=== PATIENT | female | born 1955 | race Caucasian/White ===

== ENCOUNTER 2019-03-30 21:16 | Inpatient (IN) | payer OTHER ==
[~2019-03-30] VITALS: Ht 149.9 cm; Wt 55.1 kg
[~2019-03-30 21:16] MED LIST: EFFEXOR XR150 MG PO; FEROSUL325 MG PO; FUROSEMIDE40 MG PO; SMZ TMP PO; XANAX XR0.5 MG PO
--- OUTSIDE RECORDS SUMMARY | 2019-03-30 21:19 | XMS REPORT ---
[facility] Address Unknown Phone Unavailable Care Team Providers Care Building Analyst/Supervisor Name Role Phone Unavailable Unavailable Problems This patient has no known problems. Allergies, Adverse Reactions, Alerts This patient has no known allergies or adverse reactions. Medications This patient has no known medications. Encounters Start Date/Time End Date/Time Encounter Type Admission Type Attending [facility] Care Department Encounter ID 2019-04-09 00:00:00 2019-04-09 00:00:00 Outpatient [facility] [id number] 2019-03-11 00:00:00 2019-03-11 00:00:00 Outpatient [facility] [id number] 2019-03-06 11:25:59 2019-03-06 11:25:59 Outpatient [facility] [id number] 2019-01-10 00:00:00 2019-01-10 00:00:00 Outpatient [facility] [id number] 2018-12-14 10:57:23 2018-12-14 10:57:23 Outpatient [facility] [id number] 2018-12-11 13:09:51 2018-12-11 13:09:51 Outpatient [facility] [id number] 2018-11-06 00:00:00 2018-11-06 00:00:00 Outpatient [facility] [id number] 2018-11-05 10:55:25 2018-11-05 10:55:25 Outpatient [facility] [id number] 2018-11-05 10:00:24 2018-11-05 10:00:24 Outpatient [facility] [id number] 2018-11-05 00:00:00 2018-11-05 00:00:00 Outpatient [facility] [id number] 2018-10-30 12:19:51 2018-10-30 12:19:51 Outpatient [facility] [id number] 2018-10-16 00:00:00 2018-10-16 00:00:00 Outpatient [facility] [id number] 2018-10-15 00:00:00 2018-10-15 00:00:00 Outpatient [facility] [id number] 2018-10-05 11:13:18 2018-10-05 11:13:18 Outpatient [facility] [id number] 2018-09-28 13:33:43 2018-09-28 13:33:43 Outpatient [facility] [id number] 2018-09-28 13:33:28 2018-09-28 13:33:28 Outpatient [facility] [id number] 2018-09-17 09:51:06 2018-09-17 09:51:06 Outpatient [facility] [id number] 2018-09-13 00:00:00 2018-09-13 00:00:00 Outpatient [facility] [id number] 2018-09-12 11:09:06 2018-09-12 11:09:06 Outpatient [facility] [id number] 2018-09-12 00:00:00 2018-09-12 00:00:00 Outpatient [facility] [id number] 2018-09-10 09:49:57 2018-09-10 09:49:57 Outpatient [facility] [id number] 2018-08-30 13:19:48 2018-08-30 13:19:48 Outpatient [facility] [id number] 2018-08-29 10:44:33 2018-08-29 10:44:33 Outpatient [facility] [id number] 2018-08-22 00:00:00 2018-08-22 00:00:00 Outpatient [facility] [id number] 2018-08-21 13:01:15 2018-08-21 13:01:15 Outpatient [facility] [id number] 2018-08-08 11:16:14 2018-08-08 11:16:14 Outpatient [facility] [id number] 2018-08-08 10:13:34 2018-08-08 10:13:34 Outpatient [facility] [id number] 2018-08-02 10:06:50 2018-08-02 10:06:50 Outpatient [facility] [id number] 2018-08-01 12:48:39 2018-08-01 12:48:39 Outpatient [facility] [id number] 2018-08-01 00:00:00 2018-08-01 00:00:00 Outpatient [facility] [id number] 2018-07-24 09:44:43 2018-07-24 09:44:43 Outpatient [facility] [id number] 2018-07-02 00:00:00 2018-07-02 00:00:00 Outpatient [facility] [id number] 2018-06-28 00:00:00 2018-06-28 00:00:00 Outpatient [facility] [id number] 2018-05-29 10:42:44 2018-05-29 10:42:44 Outpatient [facility] [id number] 2018-05-24 09:56:22 2018-05-24 09:56:22 Outpatient [facility] [id number] 2018-05-24 00:00:00 2018-05-24 00:00:00 Outpatient [facility] [id number] 2018-05-10 00:00:00 2018-05-10 00:00:00 Outpatient [facility] [id number] 2018-04-24 12:57:55 2018-04-24 12:57:55 Outpatient [facility] [id number] 2018-04-24 11:14:45 2018-04-24 11:14:45 Outpatient [facility] [id number] 2018-03-27 10:59:57 2018-03-27 10:59:57 Outpatient [facility] [id number] 2018-03-23 00:00:00 2018-03-23 00:00:00 Outpatient [facility] [id number] 2018-03-20 00:00:00 2018-03-20 00:00:00 Outpatient [facility] [id number] 2018-03-01 00:00:00 2018-03-01 00:00:00 Outpatient [facility] [id number] 2018-02-10 00:00:00 2018-02-10 00:00:00 Outpatient [facility] [id number] 2018-01-25 10:08:35 2018-01-25 10:08:35 Outpatient [facility] [id number] 2018-01-25 00:00:00 2018-01-25 00:00:00 Outpatient [facility] [id number] 2018-01-24 00:00:00 2018-01-24 00:00:00 Outpatient [facility] [id number] 2017-11-08 00:00:00 2017-11-08 00:00:00 Outpatient [facility] [id number] 2017-09-28 00:00:00 2017-09-28 00:00:00 Outpatient [facility] [id number] 2017-09-27 00:00:00 2017-09-27 00:00:00 Outpatient [facility] [id number] 2017-09-21 00:00:00 2017-09-21 00:00:00 Outpatient [facility] [id number] 2017-09-21 00:00:00 2017-09-21 00:00:00 Outpatient [facility] [id number] 2017-09-21 00:00:00 2017-09-21 00:00:00 Outpatient [facility] [id number] 2017-08-30 13:30:12 2017-08-30 13:30:12 Outpatient [facility] [id number] 2017-08-30 11:00:26 2017-08-30 11:00:26 Outpatient [facility] [id number] 2017-08-14 00:00:00 2017-08-14 00:00:00 Outpatient [facility] [id number] 2017-08-03 13:09:45 2017-08-03 13:09:45 Emergency [facility] [id number] 2017-08-03 12:59:59 2017-08-03 12:59:59 Inpatient [facility] [id number] 2017-08-03 11:04:59 2017-08-03 11:04:59 Outpatient [facility] [id number] 2017-07-14 00:00:00 2017-07-14 00:00:00 Outpatient [facility] [id number] 2017-06-28 00:00:00 2017-06-28 00:00:00 Outpatient [facility] [id number] 2017-06-23 00:00:00 2017-06-23 00:00:00 Outpatient [facility] [id number] 2017-06-14 00:00:00 2017-06-14 00:00:00 Outpatient [facility] [id number] 2017-06-07 16:19:50 2017-06-07 16:19:50 Outpatient [facility] [id number] 2017-05-17 00:00:00 2017-05-17 00:00:00 Outpatient [facility] [id number] 2017-05-12 00:00:00 2017-05-12 00:00:00 Outpatient [facility] [id number] 2017-04-18 10:59:06 2017-04-18 10:59:06 Outpatient [facility] [id number] 2017-03-15 00:00:00 2017-03-15 00:00:00 Outpatient [facility] [id number] 2017-03-14 00:00:00 2017-03-14 00:00:00 Outpatient [facility] [id number] 2017-03-01 10:15:42 2017-03-01 10:15:42 Outpatient [facility] [id number] 2017-02-23 09:11:28 2017-02-23 09:11:28 Outpatient [facility] [id number] 2017-02-22 00:00:00 2017-02-22 00:00:00 Outpatient [facility] [id number] 2017-02-21 14:25:05 2017-02-21 14:25:05 Outpatient [facility] [id number] 2017-02-21 13:53:03 2017-02-21 13:53:03 Outpatient [facility] [id number] 2017-02-08 08:59:13 2017-02-08 08:59:13 Outpatient [facility] [id number] 2017-02-07 14:58:18 2017-02-07 14:58:18 Outpatient [facility] [id number] 2017-02-07 13:29:57 2017-02-07 13:29:57 Outpatient [facility] [id number]
[2019-03-30 22:23] LABS: PROTHROMBIN TIME 13.7 seconds (11.9-14.5)
--- NOTE | 2019-03-30 22:28 | Diagnostic Imaging Report ---
EXAMINATION: CHEST SINGLE (PORTABLE) COMPARISON: Report of CT chest 02/13/2014. Images are not available for review. INDICATION: Shortness of breath ^SOB ^Y DISCUSSION: Frontal view of the chest obtained at 2207 hours. HEART AND MEDIASTINUM: The heart is enlarged. The aorta is tortuous. Pulmonary vascular structures prominent. LINES: None. LUNGS: The lungs are diffusely hyperinflated suggestive of small airways disease. No pneumonia or pulmonary edema. PLEURA: No pleural effusion or pneumothorax. BONES AND SOFT TISSUES: Dextroscoliosis of the thoracolumbar spine. No focal osseous lesions. Bilateral breast prostheses. Surgical clips in the right axilla. IMPRESSION: Cardiomegaly and pulmonary vascular congestion. Pulmonary hyperinflation suggestive of small airways disease. Signed by: Dr. Sarah Figueroa MD on 03/30/2019 10:25 PM
[2019-03-30 22:33] LABS: ALBUMIN 2.5 g/dL (3.5-5.0); ALBUMIN/GLOBULIN RATIO 0.9 (0.8-2.0); ANION GAP 17.5 mmol/L (8-16); CALCIUM 8.3 mg/dL (8.4-10.2); CREATININE, SERUM 1.37 mg/dL (0.57-1.11); POTASSIUM 4.5 mmol/L (3.5-5.1)
[2019-03-30] MEDS ORDERED: ONDANSETRON HCL INJ 2MG/ML 2ML 2 MG/ML VIAL IV STA (22:34)
[2019-03-30 22:36] LABS: BILIRUBIN,URINE NEGATIVE (NEGATIVE); CLARITY,URINE CLEAR (CLEAR); COLOR,URINE YELLOW (YELLOW); KETONES,URINE NEGATIVE (NEGATIVE); LEUKOCYTE ESTERASE ,URINE SMALL (NEGATIVE); NITRITE,URINE NEGATIVE (NEGATIVE); PROTEIN,URINE DIPSTICK NEGATIVE (NEGATIVE); URINE UROBILINOGEN 0.2 mg/dL (0.2 - 1)
[2019-03-30 22:40] LABS: CREATINE KINASE MB 25.5 ng/mL (0-5.0)
[2019-03-30 22:48] LABS: BACTERIA,URINE RARE /HPF; EPITHELIAL CELLS,URINE FEW /LPF; WBC,URINE (MAN) 21-50 /HPF (0-5)
[2019-03-30 22:57] LABS: LYMPHOCYTES # (AUTO) 2.6 (1.0-3.2); LYMPHOCYTES % 10.1 % (18.0-39.1); MEAN CORPUSCULAR HEMOGLOBIN 24.1 pg (28-32); MEAN CORPUSCULAR HGB CONC 31.4 g/dL (31-35); MEAN CORPUSCULAR VOLUME 76.8 fL (81-99); MONOCYTES # (AUTO) 1.4 (0.2-0.8); MONOCYTES % 5.4 % (4.4-11.3); NEUTROPHILS # (AUTO) 21.4 (2.1-6.9); NEUTROPHILS % 83.1 % (38.7-80.0); PLATELET COUNT 411 x10e3/uL (140-360); RED BLOOD COUNT 1.12 x10e6/uL (3.6-5.1); RED CELL DISTRIBUTION WIDTH 22.5 % (11.7-14.4)
[2019-03-30 23:00] LABS: HEMATOCRIT 8.6 % (34.2-44.1); HEMOGLOBIN 2.7 g/dL (12.0-16.0)
[2019-03-30] MEDS ORDERED: SODIUM CHLORIDE 0.9% 250ML 250 ML IV ONE (23:00)
[2019-03-30 23:05] LABS: LYMPHOCYTES % (MANUAL) 11 % (19-48)
[2019-03-30 23:06] LABS: BAND NEUTROPHILS % (MANUAL) 2 %; MONOCYTES % (MANUAL) 5 % (3.4-9.0); NEUTROPHILS % (MANUAL) 82 % (40-74); PLATELET ESTIMATE SLIGHTLY INCREASED
[2019-03-30 23:07] LABS: POLYCHROMASIA FEW
[2019-03-30 23:11] LABS: ELLIPTOCYTE, RBC SLIGHT
--- NOTE | 2019-03-30 23:11 | NUR ---
blood consent signed and placed on pt's chart. hct 2.7/hgb 8.6
[2019-03-30 23:12] LABS: LARGE PLATELETS MODERATE; PLATELET MORPHOLOGY COMMENT MODERATE LARGE
[2019-03-30 23:13] LABS: RBC MORPHOLOGY COMMENT ABNORMAL
--- NOTE | 2019-03-30 23:13 | NUR ---
JUILA INFORMED OF TYPE AND CROSS ORDERS
[2019-03-30] MEDS ORDERED: SODIUM CHLORIDE FLUSH 10 ML SYR INJ PRN (23:30)
--- NOTE | 2019-03-30 23:37 | NUR ---
REPORTED OFF TO DEMI CORDOBA FOR CONTINUITY OF CARE
[2019-03-31] VITALS (39 sets, daily range): BP systolic 110–146; BP diastolic 7–121
[2019-03-31] MEDS: CEFTRIAXONE SOD 1 GM/NS 50 ML 50 ML IV SCH ×2 (00:13→23:05)
[2019-03-31] MEDS: SODIUM CHLORIDE 0.9% 1000ML 1,000 ML IV SCH ×2 (00:13→14:04)
[2019-03-31] MEDS: FUROSEMIDE INJ 10 MG/ML 2 ML VIAL IV SCH ×4 (02:33→12:00)
[2019-03-31] MEDS ORDERED: SODIUM CHLORIDE 0.9% 250ML 250 ML ONE ×2 (03:58→08:59)
[2019-03-31] MEDS ORDERED: LORAZEPAM INJ 2 MG/ML VIAL IV PRN (07:15)
[2019-03-31] MEDS: PANTOPRAZOLE 40 MG 10ML VIAL IV SCH ×2 (08:10→16:57)
[2019-03-31] MEDS ORDERED: FLUCONAZOLE 100 MG/NS 50 ML 50 ML IV SCH (10:30)
[2019-03-31] MEDS ORDERED: NICOTINE 14 MG/EA PATCH TOP PRN (11:00)
--- NOTE | 2019-03-31 12:01 | History and Physical ---
REASON FOR ADMISSION: The patient is a 63-year-old female, who comes in with shortness of breath and dizziness. HISTORY OF PRESENT ILLNESS: Ms. Howard with history of breast cancer, was in usual state of health until about a week ago that she started to notice some shortness of breath and on exertion, the patient also noticed that she was feeling weaker with a history of iron deficiency anemia. The patient is on some iron tablets and also some vitamins, but these symptoms got exacerbated. The patient got dizzy and then severity increased. The patient came to the emergency room, was found to have a hemoglobin of 2 and subsequently, the patient is in ICU at this time being transfused 2 units of PRBCs. PAST MEDICAL HISTORY: History of COPD, history of breast cancer of the right, history of anxiety, history of depression, and history of prurigo nodularis. PAST SURGICAL HISTORY: 1. History of bilateral mastectomy, right one was done first. 2. History of partial hysterectomy. 3. History of bladder suspension. 4. History of tonsillectomy. MEDICATIONS: The patient takes at home: 1. Alprazolam 0.5 mg q.24 hours b.i.d. 2. Ferrous sulfate 325 mg daily. 3. Lasix 40 mg daily. 4. Venlafaxine 150 mg daily. 5. The patient also takes Bactrim b.i.d. which was started recently. ALLERGIES: ALLERGIC TO PENICILLIN. SOCIAL HISTORY: History of smoking. Smokes about a pack a day and also drinks occasionally. The patient apparently had last drink about a week ago. FAMILY HISTORY: Positive for hypertension and history of COPD in her family. REVIEW OF SYSTEMS: Negative for chest pain. Positive for some palpitations. No nausea, no vomiting. No diarrhea. Positive for shortness of breath on exertion. No constipation. No rectal bleeding. No hematochezia. No hematemesis. No bleeding diathesis noted. The patient does not have any bleeding from the rectum, not from the mouth and from the vaginal wall from the vagina. The patient has also has a skin condition where she picks on it. She has prurigo nodularis and has anxiety. PHYSICAL EXAMINATION: VITAL SIGNS: Temperature is afebrile, pulse of 104, respirations of 23, blood pressure is 121/66, pulse oximetry 100% on O2 of 4 L. HEENT: Normocephalic, atraumatic. Pupils are reactive to light and accommodation. The patient is sick appearing. CVS: S1 and S2, tachy. ABDOMEN: Nontender and nondistended. LUNGS: Decreased air entry in all somers. EXTREMITIES: No clubbing, no cyanosis, no edema. SKIN: With multiple excoriations and also areas of raised nodularity suggestive of prurigo. LABORATORY VALUES: Initial white count is 25,000, hemoglobin of 2.7, hematocrit of 8.6. The patient's neutrophil count is 83.1. Chemistry shows sodium of 131, potassium 4.5, BUN of 78, creatinine of 1.37, CK-MB was 25, creatine kinase was 390, total bilirubin was 0.1. Urine showed white count of 21-50, and stool occult was positive. IMAGING STUDIES: Chest x-ray was done, which showed cardiomegaly and pulmonary vascular congestion, pulmonary hyperinflation suggestive of small airway disease. ASSESSMENT: A 63-year-old female with: 1. Acute anemia, probably blood loss. 2. History of breast cancer. 3. Chronic obstructive pulmonary disease. 4. Signs and symptoms suggestive of heart failure. 5. Prurigo nodularis. 6. Anxiety. 7. Depression and anxiety. PLAN: Consult with Dr. Merrill has been done. A CT of the abdomen and pelvis will be done with contrast. If kidneys function has improved, additional diagnosis is acute kidney injury. Also consult with Dr. Claudio will be done. Echocardiogram will be ordered. Blood cultures, urine cultures, and peterson cultures ordered for leukocytosis. We will continue monitor the patient in the ICU. The patient will also receive a CT of the lung with contrast when appropriate and the patient is more stable. Further recommendation per clinical course. We will continue to monitor the patient and repeat labs and radiological studies as needed. MD GOYO BlakeJ/MODL /[id number]
--- NOTE | 2019-03-31 14:53 | Consultation ---
DATE OF CONSULTATION: Pulmonary Consultation Patient of Dr. Aquiles Antoine and Dr. Suárez at [facility]. HISTORY OF PRESENT ILLNESS: Charming, but unfortunate 63-year-old woman, admitted with weakness of 2 days duration and melena for 10 days, weak when going to the commode, but had no one to take her to the emergency room according to her report. Her son works night. She has a history of COPD. She has a history of breast cancer, treated in 2002 with mastectomy and chemotherapy, apparently by Dr. Eller and then Dr. Blackmon and an unknown oncologist. 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 Her kidney functions are good. She has a history of depression, on Effexor. She apparently takes iron at home. ALLERGIES: SHE IS ALLERGIC TO PENICILLIN. PAST MEDICAL HISTORY: According to old records, she has had anemia in the past. 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 PAST SURGICAL HISTORY: She has breast surgery, bladder surgery, and partial hysterectomy. SOCIAL HISTORY: She drank in the past alcohol. Continues to smoke a pack a day. FAMILY HISTORY: Positive for schizophrenia. PHYSICAL EXAMINATION: GENERAL: Well-developed white female, in no acute distress. LUNGS: Clear anteriorly. Bilateral breast prostheses. HEART: Regular rhythm. ABDOMEN: Nontender. EXTREMITIES: Nonedematous. IMPRESSION: Anemia was life-threatening at hemoglobin of 2.7. White count is elevated at 25,000, possibly related to stress or urinary infection. The patient was started on Diflucan because of a blood culture, but apparently this was ordered on the basis of an incorrect report and the patient's blood culture is still pending. We will discontinue the Diflucan. Consider iron replacement. Guaiac-positive stools noted. She will require further GI evaluation. We will request follow up CT of the chest, which has been abnormal in the past. She has also had a CT of the abdomen. GI evaluation has been ordered. Resume Effexor at a lower dose. The patient has been taking nonsteroidal agents [id number] bleeding. We will defer to GI cyber security consultant. Thank you for this kind referral. MD BENITO Tucker/GARTH /[id number]
[2019-03-31 15:28] LABS: BASOPHILS % 0.3 % (0.0-1.0); EOSINOPHILS % 0.1 % (0.0-6.0); HEMATOCRIT 26.2 % (34.2-44.1); HEMOGLOBIN 9.1 g/dL (12.0-16.0); LYMPHOCYTES # (AUTO) 1.1 (1.0-3.2); LYMPHOCYTES % 8.1 % (18.0-39.1); MEAN CORPUSCULAR HEMOGLOBIN 27.7 pg (28-32); MEAN CORPUSCULAR HGB CONC 34.7 g/dL (31-35); MEAN CORPUSCULAR VOLUME 79.6 fL (81-99); MONOCYTES # (AUTO) 1.1 (0.2-0.8); MONOCYTES % 7.5 % (4.4-11.3); NEUTROPHILS # (AUTO) 11.7 (2.1-6.9); NEUTROPHILS % 82.7 % (38.7-80.0); PLATELET COUNT 349 x10e3/uL (140-360); RED BLOOD COUNT 3.29 x10e6/uL (3.6-5.1); RED CELL DISTRIBUTION WIDTH 17.6 % (11.7-14.4)
[2019-03-31 15:55] LABS: CREATINE KINASE MB 10.1 ng/mL (0-5.0)
[2019-03-31 16:07] LABS: ANION GAP 15.7 mmol/L (8-16); CREATININE, SERUM 0.98 mg/dL (0.57-1.11)
[2019-03-31 16:11] LABS: POTASSIUM 2.7 mmol/L (3.5-5.1)
--- NOTE | 2019-03-31 16:33 | Consultation ---
DATE OF CONSULTATION: HISTORY OF PRESENT ILLNESS: A 63-year-old lady with history of anxiety, hypertension, history of breast cancer status post right mastectomy and chemotherapy, history of ethanol and smoking abuse in the past, came to the emergency room because she felt weak and tired at home. She was found to be severely anemic and admitted to the ICU. So far, she had 4 units of blood transfusion. She has been taking ibuprofen on a regular basis for quite some time for right shoulder ligament injury. She has noticed her stools are black for quite some time, but also she was taking iron, which she started on her own when she started feeling weak and tired. No heartburn. No acid reflux. No hematemesis. No nausea. No vomiting. She never had colon cancer screening in the past. PAST MEDICAL HISTORY: As above. PAST SURGICAL HISTORY: Partial hysterectomy, tonsillectomy, and mastectomy. ALLERGIES: PENICILLIN. CURRENT MEDICATIONS: 1. Ceftriaxone. 2. Ativan. 3. Pantoprazole. REVIEW OF SYSTEMS: Unremarkable. PHYSICAL EXAMINATION: GENERAL: Awake, alert, and oriented. VITAL SIGNS: Temperature 98, blood pressure 126/67. NECK: Supple. LUNGS: Clear. HEART: Irregular, regular rhythm. ABDOMEN: Soft, nontender. No acute sign. EXTREMITIES: No edema. CENTRAL NERVOUS SYSTEM: Motor function grossly intact. LABORATORY DATA: White cell count 25,000, hemoglobin 2.7, hematocrit 8, platelets 411. BUN 78, creatinine 1.37, sodium 131, potassium 4.5. Liver function normal. Urinalysis show increase in WBCs and RBCs. PLAN: The patient is about to finish her fourth unit of blood transfusion. We will recheck her blood count after that. No signs of active bleeding at this point, most likely induced by her taking nonsteroidal anti-inflammatory drugs. We will plan for upper endoscopy in the morning and of course, she would need a routine colon cancer screening as well. Tyler Merrill MD RD/GARTH /[id number]
[2019-03-31 16:43] LABS: FREE THYROXINE INDEX 1.6344 (1.4-3.8); THYROID STIMULATING HORMONE 2.404 uIU/mL (0.350-4.940)
[2019-03-31] MEDS ORDERED: POTASSIUM CHLORIDE 10MEQ EA PO NR ×2 (16:45→21:00)
[2019-03-31] MEDS ORDERED: POTASSIUM CHLORIDE 20MEQ/100ML 100 ML IV ONE (16:45)
[2019-03-31] MEDS: VENLAFAXINE HCL 75 MG CAPCR PO SCH (16:57)
--- NOTE | 2019-03-31 18:12 | NUR ---
Patient has scabs all over legs upon assessment. Dr. Coy called and informed of consult this morning. Patient received last unit of blood this afternoon for a total of [address] Dyer informed patient running bigeminy while receiving last unit of blood. Pt received Lasix after each unit as ordered. No s/s of transfusion reactions noted. BMP and CBC repeated 2 hours after blood finished. Hemoglobin came up to 9.1. Potassium 2.[address] Antoine was informed, orders given for IV and PO replacement. Dr. Antoine also ordered CT scan to happen after EGD tomorrow. Dr. Merrill ordered clear liquid diet, NPO at midnight for EGD tomorrow. Patient consented for EGD and tolerating clear liquids at this time. Patient has not had any s/s of bleeding during the shift. Echocardiogram completed today. Will continue to monitor the patient.
[2019-03-31] MEDS: IPRATROPIUM BROMIDE 0.02% 2.5 ML NEB NEB SCH (21:45)
[2019-03-31 21:53] LABS: BASOPHILS # (AUTO) 0.1 (0.0-0.1); BASOPHILS % 0.3 % (0.0-1.0); EOSINOPHILS % 0.1 % (0.0-6.0); HEMATOCRIT 31.3 % (34.2-44.1); HEMOGLOBIN 10.6 g/dL (12.0-16.0); LYMPHOCYTES # (AUTO) 1.7 (1.0-3.2); LYMPHOCYTES % 9.8 % (18.0-39.1); MEAN CORPUSCULAR HEMOGLOBIN 27.5 pg (28-32); MEAN CORPUSCULAR HGB CONC 33.9 g/dL (31-35); MEAN CORPUSCULAR VOLUME 81.1 fL (81-99); MONOCYTES # (AUTO) 1.6 (0.2-0.8); MONOCYTES % 9.1 % (4.4-11.3); NEUTROPHILS # (AUTO) 14.2 (2.1-6.9); NEUTROPHILS % 79.9 % (38.7-80.0); PLATELET COUNT 368 x10e3/uL (140-360); RED BLOOD COUNT 3.86 x10e6/uL (3.6-5.1); RED CELL DISTRIBUTION WIDTH 17.6 % (11.7-14.4)
[2019-03-31 22:09] LABS: ANION GAP 17.1 mmol/L (8-16); BLOOD UREA NITROGEN 41 mg/dL (7-26); BUN/CREATININE RATIO 47 (6-25); CALCIUM 8.3 mg/dL (8.4-10.2); CARBON DIOXIDE 24 mmol/L (22-29); CHLORIDE 99 mmol/L (98-107); CREATININE, SERUM 0.88 mg/dL (0.57-1.11); EST GLOMERULAR FILTRATION RATE > 60 ML/MIN (60-); GLUCOSE 87 mg/dL (74-118); SODIUM 136 mmol/L (136-145)
[2019-03-31 22:16] LABS: POTASSIUM 4.1 mmol/L (3.5-5.1)
[2019-03-31 22:26] LABS: CREATINE KINASE MB 7.7 ng/mL (0-5.0)
[2019-04-01] VITALS (13 sets, daily range): BP systolic 114–155; BP diastolic 70–105
[2019-04-01 03:42] LABS: BASOPHILS % 0.3 % (0.0-1.0); EOSINOPHILS % 0.2 % (0.0-6.0); HEMATOCRIT 25.3 % (34.2-44.1); HEMOGLOBIN 8.6 g/dL (12.0-16.0); LYMPHOCYTES # (AUTO) 1.8 (1.0-3.2); LYMPHOCYTES % 15.1 % (18.0-39.1); MEAN CORPUSCULAR HEMOGLOBIN 27.7 pg (28-32); MEAN CORPUSCULAR VOLUME 81.4 fL (81-99); MONOCYTES # (AUTO) 1.3 (0.2-0.8); MONOCYTES % 10.7 % (4.4-11.3); NEUTROPHILS # (AUTO) 8.8 (2.1-6.9); RED BLOOD COUNT 3.11 x10e6/uL (3.6-5.1); RED CELL DISTRIBUTION WIDTH 17.7 % (11.7-14.4)
[2019-04-01 03:51] LABS: PLATELET COUNT 308 x10e3/uL (140-360)
[2019-04-01 03:59] LABS: ANION GAP 12.1 mmol/L (8-16); BLOOD UREA NITROGEN 33 mg/dL (7-26); BUN/CREATININE RATIO 44 (6-25); CALCIUM 7.7 mg/dL (8.4-10.2); CARBON DIOXIDE 24 mmol/L (22-29); CHLORIDE 106 mmol/L (98-107); CREATININE, SERUM 0.75 mg/dL (0.57-1.11); EST GLOMERULAR FILTRATION RATE > 60 ML/MIN (60-); GLUCOSE 87 mg/dL (74-118); POTASSIUM 4.1 mmol/L (3.5-5.1); SODIUM 138 mmol/L (136-145)
--- NOTE | 2019-04-01 07:17 | Progress Note ---
DATE: SUBJECTIVE: The patient is here for life-threatening anemia, status post transfusion. Hemoglobin has come up. The patient is scheduled for EGD today and CT scan to find the etiology of bleeding. The patient has a history of breast cancer. Also, history of smoking and history of UTI, which has been treated currently. PHYSICAL EXAMINATION: VITAL SIGNS: Temperature is afebrile at 98.6, pulse of 102, respirations of 21, blood pressure is 128/91, pulse oximetry of 96% on room air. HEENT: Normocephalic, atraumatic. Pupils are reactive. CVS: S1 and S2, tachy. ABDOMEN: Tender in the epigastrium. EXTREMITIES: No clubbing, no cyanosis, no edema. SKIN AND INTEGUMENTARY SYSTEM: Positive for multiple excoriations throughout the entire lower extremities, prurigo present. Neurologic: Otherwise, neurologically nonfocal. LABORATORY VALUES: Today's hemoglobin is 8.6 and hematocrit of 25.3. Chemistry; sodium 138, potassium 4.8, BUN is 33, creatinine 0.75. Iron panel; iron of 21, TIBC 444, transferrin of 55. Thyroid panel was normal. IMAGING STUDIES: One from yesterday, but otherwise normal. MEDICATIONS: She is on Rocephin, ipratropium, venlafaxine, nicotine patch. The patient has already gotten her influenza vaccine and pneumococcal vaccine, otherwise on lorazepam q.6 hours as needed for anxiety. ASSESSMENT: 1. Blood loss anemia, acute. 2. History of breast cancer. 3. Chronic obstructive pulmonary disease. 4. History of heart failure. 5. Prurigo. 6. Anxiety. 7. Depression. 8. Urinary tract infection. PLAN: Continue monitoring. Blood cultures still pending. The patient can be transferred out of the ICU, will be on telemetry monitoring. The patient's echocardiogram results show LVH, mild AI and moderate MR. We will wait for official report. Further recommendation per clinical course. We will continue to monitor the patient. MD YANIRA Blake/MODL /[id number]
[2019-04-01] MEDS: SODIUM CHLORIDE 0.9% 1000ML 1,000 ML IV SCH (07:19)
[2019-04-01] MEDS: IPRATROPIUM BROMIDE 0.02% 2.5 ML NEB NEB SCH ×2 (07:25→23:00)
[2019-04-01] MEDS: PANTOPRAZOLE 40 MG 10ML VIAL IV SCH (08:00)
[2019-04-01] MEDS: VENLAFAXINE HCL 75 MG CAPCR PO SCH ×2 (08:00→18:26)
[2019-04-01] MEDS: IRON SUCROSE 100 MG in SODIUM CHLORIDE 0.9% 100 ML 100 ML IV SCH (08:00)
[2019-04-01 12:12] LABS: BASOPHILS % 0.4 % (0.0-1.0); EOSINOPHILS % 0.2 % (0.0-6.0); HEMATOCRIT 26.5 % (34.2-44.1); HEMOGLOBIN 8.9 g/dL (12.0-16.0); LYMPHOCYTES # (AUTO) 1.2 (1.0-3.2); LYMPHOCYTES % 11.5 % (18.0-39.1); MEAN CORPUSCULAR HEMOGLOBIN 27.3 pg (28-32); MEAN CORPUSCULAR HGB CONC 33.6 g/dL (31-35); MEAN CORPUSCULAR VOLUME 81.3 fL (81-99); MONOCYTES # (AUTO) 1.1 (0.2-0.8); MONOCYTES % 10.5 % (4.4-11.3); NEUTROPHILS # (AUTO) 7.9 (2.1-6.9); NEUTROPHILS % 76.7 % (38.7-80.0); PLATELET COUNT 339 x10e3/uL (140-360); RED BLOOD COUNT 3.26 x10e6/uL (3.6-5.1); RED CELL DISTRIBUTION WIDTH 17.7 % (11.7-14.4)
--- NOTE | 2019-04-01 14:09 | NUR ---
TRANSFERRED TO ROOM 295 RN TO RESUME CARE
--- NOTE | 2019-04-01 14:12 | NUR ---
Recvd patient from ICU, stable, not in any distress, keep monitoring
--- NOTE | 2019-04-01 14:22 | NUR ---
patient off the unit for EGD
--- NOTE | 2019-04-01 14:35 | NUR ---
WOUND CARE CONSULT 63 YO FEMALE HX ANEMIA, GENERALIZED ITCHING AND SCABBING LABS: WBC- 12.04, HGB- 8.5, GLUCOSE- 87 BLOOD CULTURE PENDING COMPLETE SKIN ASSESSMENT DONE PATIENT PRESENTS WITH 2.5CMX 2.5CMX .1CM ULCERATION TO LEFT INNER KNEE SMALL AMOUNT OF LIGHT WEBSTER DRAINAGE NOTED OTHER AREAS NOTED WAS MULTIPLE SCABBED AREAS GENERALIZED OVER BODY SURFACE MOST MEASURING .2 TO .3 CM NO DRAINAGE NOTED LAW SKIN WITH MODERATE DRYNESS RECOMMENDATIONS : NURSING TO APPLY BACTROBAN OINTMENT TO LEFT LATERAL KNEE ULCERATION DAILY AND COVER WITH [facility] NURSING TO APPLY VENELEX OINTMENT DAILY TO GENERALIZED SCABBING TO UPPER EXTREMITIES AND TORSO AND LOWER EXTREMITIES Addendum: 04/01/19 at 1445 by Scott Mccray RN Amended: Links added.
[2019-04-01] MEDS ORDERED: IOPAMIDOL 370 MG/ML 200 ML INFUS..BTL INJ ONE (17:43)
[2019-04-01] MEDS ORDERED: SODIUM CHLORIDE 0.9% 50ML 50 ML ONE (17:43)
[2019-04-01] MEDS: PANTOPRAZOLE SOD 40 MG TABEC PO SCH (18:26)
[2019-04-01] MEDS ORDERED: FENTANYL CITRATE/PF 100MCG/2 ML INJ ONE (18:38)
--- NOTE | 2019-04-01 18:52 | Diagnostic Imaging Report ---
EXAM: CT Chest, Abdomen and Pelvis WITH contrast INDICATION: Anemia, weakness COMPARISON: CT chest, 02/13/2014 (images are unavailable for comparison on PACS) TECHNIQUE: Chest, abdomen and pelvis were scanned utilizing a multidetector helical scanner from the lung apex to the pubic symphysis before and after administration of IV contrast. Coronal and sagittal reformations were obtained. Routine protocol was performed. Scan was performed when during portal venous phase. Dose modulation, iterative reconstruction, and/or weight based adjustment of the mA/kV was utilized to reduce the radiation dose to as low as reasonably achievable. IV CONTRAST: 100 mL of Isovue-370 ORAL CONTRAST: None RADIATION DOSE: Total DLP: 374.06 mGy*cm Estimated effective dose: (DLP x 0.015 x size factor) mSv COMPLICATIONS: None FINDINGS: LINES and TUBES: None. LUNGS AND AIRWAYS: There are linear opacities with patchy groundglass density at the lung bases consistent with atelectasis. No pulmonary consolidation or other air space opacity. Trachea and main bronchi are clear. PLEURA: The pleural spaces are clear. There is minimal pleural thickening at the lung bases. HEART AND MEDIASTINUM: The thyroid gland is normal. No mediastinal, hilar or axillary lymphadenopathy. The heart is mildly enlarged. There is no pericardial effusion. There is no dilatation of the thoracic aorta. The main pulmonary artery measures 3.6 cm, dilated.] HEPATOBILIARY: No focal hepatic lesions. No biliary ductal dilation. GALLBLADDER: No radio-opaque stones or sludge. No wall thickening. SPLEEN: No splenomegaly. PANCREAS: No focal masses or ductal dilatation. ADRENALS: No adrenal nodules KIDNEYS/URETERS: Kidneys enhance symmetrically. No hydronephrosis. No cystic or solid mass lesions. No stones. GI TRACT: No abnormal distention, wall thickening, or evidence of bowel obstruction. Sigmoid diverticulosis with no CT evidence for acute diverticulitis. Apparent mobile cecum extending to the left lower quadrant. There is mild fat stranding adjacent to the gastric fundus posteriorly (series 2, image 53). There is no fluid collection or free air. The appendix is not conspicuously visualized. PELVIC ORGANS/BLADDER: Urinary bladder appears unremarkable. No discrete abnormal mass or fluid collection in the pelvis. The uterus is not visualized. LYMPH NODES: No dominant lymph node mass seen in the abdomen, retroperitoneum or pelvis. VESSELS: The abdominal aorta is tortuous with few calcified plaques. No aneurysm or dissection. Celiac, SMA and VASQUEZ are patent. IVC and portal system appear unremarkable. PERITONEUM / RETROPERITONEUM: No pneumoperitoneum or ascites. BONES: No acute or suspicious bony lesions. Moderately severe thoracolumbar scoliosis with degenerative changes noted. Grade 1 spondylolisthesis of L5 on S1. Partial compression of the L1 vertebral body, age indeterminate. SOFT TISSUES: Superficial surrounding soft tissue shows the presence of bilateral breast implants. IMPRESSION: 1. No CT evidence for acute chest pathology. Atelectasis is seen at the lung bases. There is mild dilatation of the main pulmonary artery which is nonspecific but may be seen with pulmonary hypertension. 2. There is wall thickening of the gastric fundus and mild fat stranding adjacent to the gastric fundus posteriorly. This is of indeterminate significance but may be related to a gastric inflammatory process. There is no pneumoperitoneum or fluid collection 3. No other CT evidence for acute abdominal or pelvic pathology. Signed by: Dr. Collin Valverde M.D. on 04/01/2019 6:48 PM
--- NOTE | 2019-04-01 19:00 | NUR ---
patient received awake, alert, lying quietly in bed. no c/o pain noted. pm assessment complete. patient instructed to call for assistance when needed.
[2019-04-01] MEDS ORDERED: PROPOFOL IV EMULSION 10 MG/ML 50 ML VIAL ONE (19:33)
[2019-04-01] MEDS: CEFTRIAXONE SOD 1 GM/NS 50 ML 50 ML IV SCH (23:23)
[2019-04-02] VITALS (10 sets, daily range): BP systolic 115–160; BP diastolic 76–98
--- NOTE | 2019-04-02 04:30 | NUR ---
manual bp 140/76 hr 91 at this time.
[2019-04-02 06:45] LABS: ANION GAP 11.5 mmol/L (8-16); BLOOD UREA NITROGEN 15 mg/dL (7-26); BUN/CREATININE RATIO 23 (6-25); CALCIUM 8.5 mg/dL (8.4-10.2); CARBON DIOXIDE 25 mmol/L (22-29); CHLORIDE 105 mmol/L (98-107); CREATININE, SERUM 0.65 mg/dL (0.57-1.11); EST GLOMERULAR FILTRATION RATE > 60 ML/MIN (60-); GLUCOSE 87 mg/dL (74-118); POTASSIUM 3.5 mmol/L (3.5-5.1); SODIUM 138 mmol/L (136-145)
[2019-04-02] MEDS: IPRATROPIUM BROMIDE 0.02% 2.5 ML NEB NEB SCH ×3 (07:12→23:45)
--- NOTE | 2019-04-02 08:46 | Progress Note ---
DATE: SUBJECTIVE: The patient is a 63-year-old female, who came in with symptomatic life-threatening anemia. The patient is status post transfusion. The patient is also getting Venofer at this time. The patient is currently on Rocephin for leukocytosis. Currently feeling better except for itching in her lower extremities. No chest pain. No shortness of breath. OBJECTIVE: VITAL SIGNS: Temperature is 96.7, pulse of 91, respirations of 18, blood pressure is 140/76, pulse oximetry of 100% on 2 L of oxygen. HEENT: Normocephalic and atraumatic. Pupils are reactive to light and accommodation. CVS: S1 and S2 normal. Regular rate and rhythm. LUNGS: Decreased air entry into all lung somers. ABDOMEN: Nontender, nondistended. EXTREMITIES: No clubbing, no cyanosis, no edema. Multiple excoriations present. DIAGNOSTIC DATA: The patient's CT scan was done, which shows no acute evidence of chest pathology. There is also wall thickening of the gastric fundus and mild fat stranding adjacent to the gastric fundus posteriorly. This is indeterminate. No other pathology seen on CT. MEDICATIONS: The patient is on Rocephin, pantoprazole, venlafaxine, furosemide, mupirocin for lower extremities, nicotine patch, lorazepam as needed. LABORATORY DATA: White count is down to 10,000 from 25,000, hemoglobin of 8.9, hematocrit of 26.5. MICROBIOLOGY: Blood cultures negative so far. Urine cultures are still pending. ASSESSMENT: 1. Blood loss anemia, acute. 2. History of breast cancer. 3. Chronic obstructive pulmonary disorder. 4. Anxiety. 5. Depression. 6. Urinary tract infection. PLAN: Physical therapy today. SNF order will be ordered. If the patient is feeling better, the patient can be transferred to SNF for PT evaluation today. MD YANIRA Blake/GARTH /[id number]
[2019-04-02] MEDS: PANTOPRAZOLE SOD 40 MG TABEC PO SCH ×2 (09:27→17:12)
[2019-04-02] MEDS: VENLAFAXINE HCL 75 MG CAPCR PO SCH ×2 (09:27→17:12)
[2019-04-02] MEDS: BALSAM PERU/CASTOR OIL 60 GM OINT...G. TP SCH (09:39)
[2019-04-02] MEDS: IRON SUCROSE 100 MG in SODIUM CHLORIDE 0.9% 100 ML 100 ML IV SCH (09:39)
[2019-04-02] MEDS: BETAMETHASONE DIP AUG 0.05% CRM 15 GM TUBE TOP SCH (09:39)
--- NOTE | 2019-04-02 12:09 | NUR ---
SPOKE WITH PT TODAY AND LET KNOW THAT IN DR HOLT NOTE IT TALKS ABOUT A SNF, LET HER KNOW THAT PT IS COMING TO EVAL. SHE STATES SHE HAS MEDICAID AND WOULD REALLY PREFER TO GO HOME AND IF NEEDS ANY SERVICES TO GET AT HOME. SHE WENT ON TO STATE THAT SHE THINKS SHE IS BEING REFERRED TO A SNF BECAUSE SHE SMOKES AND STATES SHE KNOWS SHE NEEDS TO QUIT. LEFT CARD AND LET HER KNOW THAT CASE MANAGEMENT WOULD BE FOLLOWING HER CARE AND IF ANYTHING IS ORDERED WE WOULD RETURN.
[2019-04-02] MEDS: MUPIROCIN 2% OINT 22 GM TUBE TOP SCH (12:15)
--- NOTE | 2019-04-02 15:59 | Progress Note ---
DATE: SUBJECTIVE: Ms. Howard came with severe anemia. She had blood transfusion. Today her hemoglobin 8.9, hematocrit 26.5. She had upper endoscopy yesterday, revealed a large gastric ulcer, most likely related to chronic use of nonsteroidal anti-inflammatory drugs. Eight biopsies were done for the ulcer to rule out malignancy. The patient was maintained on Protonix and doing well. She can be discharged to follow as an outpatient and she needs a repeat upper endoscopy in three months to document gastric healing. Tyler Merrill MD RD/MODL /[id number]
--- NOTE | 2019-04-02 19:05 | NUR ---
RECEIVED REPORT FROM PREVIOUS NURSE. CALL LIGHT WITHIN REACH. PATIENT IN BED.
[2019-04-02] MEDS: CEFTRIAXONE SOD 1 GM/NS 50 ML 50 ML IV SCH (23:50)
[2019-04-03 05:13] VITALS: BP 149/89
[2019-04-03 05:48] LABS: BASOPHILS # (AUTO) 0.1 (0.0-0.1); BASOPHILS % 0.3 % (0.0-1.0); EOSINOPHILS # (AUTO) 0.4 (0.0-0.4); EOSINOPHILS % 2.6 % (0.0-6.0); HEMOGLOBIN 9.4 g/dL (12.0-16.0); MEAN CORPUSCULAR HEMOGLOBIN 27.4 pg (28-32); MEAN CORPUSCULAR HGB CONC 32.4 g/dL (31-35); MEAN CORPUSCULAR VOLUME 84.5 fL (81-99); MONOCYTES # (AUTO) 1.9 (0.2-0.8); MONOCYTES % 12.8 % (4.4-11.3); NEUTROPHILS # (AUTO) 9.9 (2.1-6.9); PLATELET COUNT 491 x10e3/uL (140-360); RED BLOOD COUNT 3.43 x10e6/uL (3.6-5.1); RED CELL DISTRIBUTION WIDTH 18.4 % (11.7-14.4)
[2019-04-03] MEDS: IRON SUCROSE 100 MG in SODIUM CHLORIDE 0.9% 100 ML 100 ML IV SCH (05:59)
[2019-04-03 06:05] LABS: ANION GAP 12.6 mmol/L (8-16); BLOOD UREA NITROGEN 12 mg/dL (7-26); BUN/CREATININE RATIO 18 (6-25); CALCIUM 8.6 mg/dL (8.4-10.2); CARBON DIOXIDE 26 mmol/L (22-29); CHLORIDE 105 mmol/L (98-107); CREATININE, SERUM 0.67 mg/dL (0.57-1.11); EST GLOMERULAR FILTRATION RATE > 60 ML/MIN (60-); GLUCOSE 83 mg/dL (74-118); POTASSIUM 3.6 mmol/L (3.5-5.1); SODIUM 140 mmol/L (136-145)
--- NOTE | 2019-04-03 07:14 | NUR ---
Gave report to oncoming nurse. Call light within reach. Patient in bed.
--- NOTE | 2019-04-03 07:20 | NUR ---
PATIENT IS ALERT, AWAKE AND IN STABLE CONDITION WITH NO S/S OF RESPIRATORY DISTRESS. NO PAIN VOICED. SCABS NOTED TO BILATERAL LOWER EXTREMITIES. CALL LIGHT IS WITHIN REACH, PATIENT INSTRUCTED TO CALL FOR ASSISTANCE NEEDED.
[2019-04-03] MEDS: IPRATROPIUM BROMIDE 0.02% 2.5 ML NEB NEB SCH ×3 (07:48→20:20)
[2019-04-03 08:00] VITALS: BP 133/96
[2019-04-03] MEDS: VENLAFAXINE HCL 75 MG CAPCR PO SCH ×2 (08:10→17:05)
[2019-04-03] MEDS: PANTOPRAZOLE SOD 40 MG TABEC PO SCH ×2 (08:10→17:05)
[2019-04-03] MEDS: SUCRALFATE 1 GM TAB PO SCH ×4 (08:10→21:00)
[2019-04-03] MEDS: BALSAM PERU/CASTOR OIL 60 GM OINT...G. TP SCH (08:11)
[2019-04-03] MEDS: MUPIROCIN 2% OINT 22 GM TUBE TOP SCH (08:11)
[2019-04-03] MEDS: BETAMETHASONE DIP AUG 0.05% CRM 15 GM TUBE TOP SCH (08:11)
--- NOTE | 2019-04-03 09:38 | Progress Note ---
DATE: SUBJECTIVE: The patient is a 63-year-old female who comes in with GI bleed, symptomatic anemia. The patient had EGD done which showed large gastric ulcer. Biopsies have been taken. The patient is stable right now. No chest pain. No shortness of breath. Has not had a bowel movement yet. She does complain of some pain in the pit of the stomach according to her. The patient is otherwise stable. Physical therapy has been started. MEDICATIONS: The patient's medications are iron sucrose, Rocephin 1 g q.24 hours, ipratropium albuterol treatment, mupirocin for leg wounds, and lorazepam as needed for anxiety. OBJECTIVE: VITAL SIGNS: Temperature is 96.3, pulse of 104, respirations of 18, blood pressure is 148/89, and pulse oximetry of 98% on 2 L of oxygen. HEENT: Normocephalic and atraumatic. Pupils are reactive. CVS: S1 and S2, tachy. ABDOMEN: Tender in the epigastrium. EXTREMITIES: No clubbing, no cyanosis, no edema. LABORATORY DATA: White count is 14,000, hemoglobin of 9.4, hematocrit of 29.0, platelet count is 491. Chemistries; sodium 140, potassium 3.6, BUN and creatinine have normalized to 12 and 0.67. MICROBIOLOGY: Blood cultures with no growth. ASSESSMENT: A 63-year-old female with: 1. Symptomatic acute blood loss anemia status post transfusion. 2. Acute gastric ulcer. 3. Chronic obstructive pulmonary disease. 4. Leukocytosis. 5. Sepsis. 6. Nicotine dependence. 7. Hypertension. PLAN: Continue with current medication. We will add Carafate to the regimen. She is on pantoprazole 40 mg twice a day. The patient is on physical therapy and occupational therapy. SNF order will be placed. The patient can be moved out to SNF when bed available. Further recommendation per clinical course. MD YANIRA Blake/MODL /[id number]
[2019-04-03 10:09] VITALS: BP 133/96
[2019-04-03 11:52] VITALS: BP 132/91
--- NOTE | 2019-04-03 13:39 | Consultation ---
DATE OF CONSULTATION: 03/31/[address] Aquiles Antoine. HISTORY OF PRESENT ILLNESS: Kiley Howard is a 63-year-old white female, who was referred to me for hemoglobin of 2.7, history of GI bleed. SOCIAL HISTORY: Noncontributory. FAMILY HISTORY: Noncontributory. ALLERGIES: PENICILLIN. MEDICATIONS: At this time: 1. Ceftriaxone. 2. Lasix. 3. Blood transfusion. 4. Protonix. 5. Sodium chloride. 6. Pneumococcal vaccine. 7. Influenza vaccine. 8. Nicotine. REVIEW OF SYSTEMS: HEENT: Normal. CARDIAC: Normal. RESPIRATORY: Normal. GI: GI bleed. : Normal. MUSCULOSKELETAL: Normal. SKIN AND BREASTS: The patient had breast cancer and is being followed up by her own medical oncologist. The patient had bilateral mastectomy and reconstruction. NEUROENDOCRINE: Essentially normal. PHYSICAL EXAMINATION: GENERAL: A moderately built female, very anemic. NECK: No palpable adenopathy. HEART: Within normal limits. LUNGS: Clear. BREASTS: Reconstruction. ABDOMEN: Soft. RECTAL AND VAGINAL: Deferred. CENTRAL NERVOUS SYSTEM: Essentially normal. EXTREMITIES: Essentially normal. LABORATORY DATA: Hemoglobin of 2.7, hematocrit of 8.6, white count of 25,700, and platelets 411,000. Sodium 131, potassium 4.5, chloride is 98, CO2 20, BUN 78, and creatinine 1.37. INR 1.0. Bilirubin 0.1, SGOT 22, SGPT 33, and alkaline phosphatase 61. IMPRESSION: 1. Anemia of blood loss. 2. Gastrointestinal bleed. Stool for occult blood positive. 3. Iron deficiency, RDW 22.5. 4. Prerenal azotemia. 5. Hypoproteinemia of 5.3. 6. Hypoalbuminemia of 2.5. 7. Cardiomegaly by chest x-ray. 8. Pulmonary hyperinflation by chest x-ray. 9. Leukemoid reaction. 10. History of breast cancer. PLAN, COMMENTS, AND SUGGESTIONS: Suggest blood transfusion, GI consult, cultures, and antibiotics. I will confine myself to Hematology, as the patient has been transfused to 9.4 on 04/03, being discharged to be followed up by Dr. Aquiles Antoine. I will be more than happy to follow this patient if Dr. Antoine's office will call and make an appointment. MD LILAINA Duenas/GARTH /[id number]
[2019-04-03 16:00] VITALS: BP 152/80
--- NOTE | 2019-04-03 19:40 | NUR ---
PATIENT IS IN STABLE CONDITION WITH NO S/S OF RESPIRATORY DISTRESS- NO PAIN VOICED. CALL LIGHT IS WITHIN REACH, PATIENT INSTRUCTED TO CALL FOR ASSISTANCE NEEDED. REPORT GIVEN TO ONCOMING NURSE.
[2019-04-03 19:54] VITALS: BP 135/87
--- NOTE | 2019-04-03 20:28 | NUR ---
RECEIVED PT IN BED AOX3 .RESPIRATIONS ARE EVEN AND UN LABORED .TELE #[address] LEFT AC 20G S/L .CALL LIGHT WITH IN REACH .CONTINUE TO MONITOR
[2019-04-03] MEDS: CEFTRIAXONE SOD 1 GM/NS 50 ML 50 ML IV SCH (23:33)
[2019-04-04] VITALS (7 sets, daily range): BP systolic 105–149; BP diastolic 59–92
[2019-04-04] MEDS: IRON SUCROSE 100 MG in SODIUM CHLORIDE 0.9% 100 ML 100 ML IV SCH (05:52)
--- NOTE | 2019-04-04 06:30 | NUR ---
PT RESTED DURING THE NIGHT .DENIES PAIN CALL LIGHT WITH IN REACH .CONTINUE TO MONITOR
--- NOTE | 2019-04-04 07:05 | NUR ---
REPORT GIVEN TO THE ONCOMING NURSE
[2019-04-04] MEDS: IPRATROPIUM BROMIDE 0.02% 2.5 ML NEB NEB SCH ×2 (07:20→13:00)
--- NOTE | 2019-04-04 07:30 | NUR ---
PATIENT IS ALERT AND IN STABLE CONDITION WITH NO S/S OF RESPIRATORY DISTRESS. NO PAIN VOICED. IV IRON INFUSING. CALL LIGHT IS WITHIN REACH OF PATIENT, PATIENT INSTRUCTED TO CALL FOR ASSISTANCE NEEDED.
[2019-04-04] MEDS: BETAMETHASONE DIP AUG 0.05% CRM 15 GM TUBE TOP SCH (08:16)
[2019-04-04] MEDS: SUCRALFATE 1 GM TAB PO SCH ×2 (08:16→10:45)
[2019-04-04] MEDS: VENLAFAXINE HCL 75 MG CAPCR PO SCH (08:16)
[2019-04-04] MEDS: PANTOPRAZOLE SOD 40 MG TABEC PO SCH (08:16)
[2019-04-04] MEDS: BALSAM PERU/CASTOR OIL 60 GM OINT...G. TP SCH (08:17)
[2019-04-04] MEDS: MUPIROCIN 2% OINT 22 GM TUBE TOP SCH (08:17)
--- NOTE | 2019-04-04 09:33 | Progress Note ---
DATE: SUBJECTIVE: The patient is a 63-year-old, who came in with significant life-threatening anemia. The patient is status post transfusion, status post EGD with the finding of a gastric ulcer. The patient is currently stable. No chest pain. No shortness of breath. Getting albuterol, Atrovent treatments. The patient is otherwise stable at this time. OBJECTIVE: VITAL SIGNS: Temperature is 96.7, pulse of 107, respirations of 16, blood pressure is 149/74, pulse oximeter of 99% on 2 L. HEENT: Normocephalic, atraumatic. Pupils are reactive to light and accommodation. CVS: S1 and S2 normal. Regular rate and rhythm. LUNGS: Decreased air entry into all lung somers. ABDOMEN: Nontender and nondistended. EXTREMITIES: No clubbing, no cyanosis, and no edema. LABORATORY VALUES: None done today. White count is 14 yesterday. MICROBIOLOGY: No growth was seen. IMAGING STUDIES: Pelvic CT was done on . ASSESSMENT: 1. Anemia of blood loss. 2. Gastric ulcer. 3. Iron deficiency anemia. 4. Hyponatremia. 5. Acute renal failure. 6. Prerenal azotemia. 7. Chronic obstructive pulmonary disease. 8. Leukemoid reaction. 9. History of breast cancer. PLAN: The patient is stable enough, can be discharged home on Keflex 500 mg twice a day. Albuterol and Atrovent treatments will be arranged and nebulizer should be arranged. Physical therapy at home health will be arranged. The patient was not qualifying for SNF secondary to insurance issues. Further recommendation per clinical course. The patient should be followed up with her primary care physician at the earliest available date for checking her blood work and also for reviewing her medications. MD YANIRA Blake/MODL /[id number]
[2019-04-04] MEDS ORDERED: PROTONIX40 MG/ML PO (14:25)
[2019-04-04] MEDS ORDERED: CARAFATE1 GM/10 ML PO (14:26)
[2019-04-04] MEDS ORDERED: KEFLEX500 MG PO (14:26)
--- NOTE | 2019-04-04 17:13 | NUR ---
PATIENT DISCHARGE HOME WITH HOME HEALTH. PATIENT DISCHARGE OFF THE UNIT AT 1659 PER WHEELCHAIR ACCOMPANIED BY RN TO THE PATIENT'S SONS PERSONAL VEHICLE. PATIENT IN STABLE CONDITION WITH NO S/S OF RESPIRATORY DISTRESS. NO C/O PAIN. IV REMOVED WITH TIP INTACT. DISCHARGE TEACHING, INSTRUCTIONS, AND MEDICATIONS GIVEN TO THE PATIENT. ALL PERSONAL ITEMS TAKEN WITH THE PATIENT.
[2019-04-05] MEDS ORDERED: PNEUMOCOCCAL VACCINE POLYVALENT 23 MCG/0.5 ML VIAL IM SCH (09:00)
[2019-04-05] MEDS ORDERED: INFLUENZA VIRUS VAC SPLIT INJ 0.5 ML SYR IM SCH (09:00)
== END 2019-04-04 17:01 | disposition home or self-care (01) | DRG 871 ==
LOC: ER 21:16 → ERHOLD 03-31 00:07 → ICU 03-31 02:18 → MED/SURG3 04-01 13:54
PROVIDERS: ADMIT Family Medicine; ATTEND Family Medicine
PROC: 30233N1 Transfusion of Nonautologous Red Blood Cells into Peripheral Vein, Percutaneous Approach (ICD-10-PCS; principal; 2019-03-31)
PROC: 0DB68ZX Excision of Stomach, Via Natural or Artificial Opening Endoscopic, Diagnostic (ICD-10-PCS; 2019-04-01)
PROC: 0DB98ZX Excision of Duodenum, Via Natural or Artificial Opening Endoscopic, Diagnostic (ICD-10-PCS; 2019-04-01)
DX: A41.9 Sepsis, unspecified organism (principal); K25.0 Acute gastric ulcer with hemorrhage; D62 Acute posthemorrhagic anemia; E87.1 Hypo-osmolality and hyponatremia; N30.01 Acute cystitis with hematuria; N17.9 Acute kidney failure, unspecified; J44.9 Chronic obstructive pulmonary disease, unspecified; L28.1 Prurigo nodularis; F41.9 Anxiety disorder, unspecified; E88.09 Other disorders of plasma-protein metabolism, not elsewhere classified; Z88.0 Allergy status to penicillin; Z85.3 Personal history of malignant neoplasm of breast; Z82.49 Family history of ischemic heart disease and other diseases of the circulatory system; Z90.13 Acquired absence of bilateral breasts and nipples; F17.210 Nicotine dependence, cigarettes, uncomplicated; Z83.6 Family history of other diseases of the respiratory system; D72.823 Leukemoid reaction; I51.7 Cardiomegaly; E77.8 Other disorders of glycoprotein metabolism; R79.89 Other specified abnormal findings of blood chemistry; K44.9 Diaphragmatic hernia without obstruction or gangrene; I11.0 Hypertensive heart disease with heart failure; I50.9 Heart failure, unspecified; K29.50 Unspecified chronic gastritis without bleeding
CPT/HCPCS: 36415; 43239; 71045; 71260; 74177; 80048; 80053; 81001; 82270; 82378; 82550; 82553; 82607; 83540; 83880; 84436; 84443; 84466; 84479; 84484; 85025; 85610; 85730; 86850; 86900; 86920; 87040; 88305; 88312; 93005; 93306; 94640; 97139; 99284; J0696; J1756; J1940; J2405; J3010; J3480; J7030; J7050; P9016; Q9967